=== PATIENT | female | born 1995 | race Hispanic/Latino ===

== ENCOUNTER 2018-01-29 16:50 | Emergency (ER) | payer OTHER ==
[2018-01-29] MEDS ORDERED: ONDANSETRON 4 MG (ODT) TAB ONE (17:21)
[2018-01-29 17:31] LABS: Urine Bacteria 20-50 /HPF (<20); Urine RBC <5 /HPF (NONE SEEN)
[2018-01-29 17:32] LABS: Urine Culture Reflex Order REFLEXED; Urine Mucus 3+ /HPF (NONE SEEN)
[2018-01-29 17:32] LABS: Urine Blood NEGATIVE (NEG); Urine Glucose NEGATIVE (NEG); Urine Protein 2+ (NEG); Urine Specific Gravity >1.030 (1.005-1.030)
[2018-01-29 18:04] LABS: Absolute Lymphocytes (CBC) 1.1 K/uL (0.7-4.9); Absolute Monocytes 0.6 K/uL (0.1-1.3); Absolute Neutrophil 9.5 K/uL (1.8-8.0); Eosinophils % 0.1 % (0-4.4); Hematocrit 42.5 % (36.0-45.0); Lymphocytes % 9.7 % (15.3-44.8); MCH 29.5 pg (27.0-35.0); MCV 89.4 fL (80-100); MPV 7.2 fL (7.6-11.3); Monocytes % 5.2 % (3.3-12.3); RBC Red Blood Cell Count 4.76 M/uL (3.86-4.86)
[2018-01-29] MEDS ORDERED: NA CHLORIDE 0.9% 1,000 ML ONE (18:05)
[2018-01-29 18:53] LABS: ALT/SGPT 43 U/L (12-78); AST/SGOT 31 U/L (15-37); Alkaline Phosphatase 118 U/L (45-117); Amylase Level 79 U/L (25-115); BUN Blood Urea Nitrogen 15 mg/dL (7-18); Bicarbonate 23 mmol/L (21-32); Bilirubin Direct 0.2 mg/dL (0-0.2); Bilirubin Total 0.5 mg/dL (0.2-1.0); Glucose Level 89 mg/dL (74-106); HCG, Quantitative 16297 mIU/mL (1-3); Lipase 76 U/L (73-393); Potassium 3.9 mmol/L (3.5-5.1); Protein, Total 8.9 g/dL (6.4-8.2); Sodium Level 137 mmol/L (136-145)
--- NOTE | 2018-01-29 20:05 | ER ---
Nurse's Notes [facility] Name: Bonnie Bazan Age: 22 yrs Sex: Female : 1995 Arrival Date: 01/29/2018 Time: 16:53 Bed 17 Private MD: Jered Del Rio E Diagnosis: Nausea and vomiting; related conditions, unspecified, first trimester Presentation: 01/29 16:57 Presenting complaint: Patient states: found out she was on Saturday and has been sv vomiting since then. Unable to keep fluids or crackers down. Transition of care: patient was not received from another setting of care. Onset of symptoms was January 27, 2018. Care prior to arrival: None. 16:57 Method Of Arrival: Ambulatory sv 16:57 Acuity: JESSENIA 3 sv 18:26 Risk Assessment: Do you want to hurt yourself or someone else? Patient reports no aj1 desire to harm self or others. Initial Sepsis Screen: Does the patient meet any 2 criteria? No. Patient's initial sepsis screen is negative. Does the patient have a suspected source of infection? No. Patient's initial sepsis screen is negative. 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 - Social history:: Smoking status: Patient/guardian denies using tobacco. - Ebola Screening: : No symptoms or risks identified at this time. Screenin:25 Abuse screen: Denies threats or abuse. Denies injuries from another. Nutritional aj1 screening: No deficits noted. Tuberculosis screening: No symptoms or risk factors identified. 18:26 Fall Risk None identified. aj1 Assessment: 17:25 General: Appears in no apparent distress. uncomfortable, Behavior is calm, cooperative, aj1 appropriate for age. Pain: Denies pain. Neuro: Level of Consciousness is awake, alert, obeys commands, Oriented to person, place, time, situation, Speech is normal, Facial symmetry appears normal. Cardiovascular: Patient's skin is warm and dry. Respiratory: Airway is patent Respiratory effort is even, unlabored, Respiratory pattern is regular, symmetrical. GI: Abdomen is non-distended, Bowel sounds present X 4 quads. Abd is soft and non tender X 4 quads. Reports intolerance of fluids, intolerance of food, nausea, vomiting, Patient currently denies abdominal pain, constipation, diarrhea. : No signs and/or symptoms were reported regarding the genitourinary system. EENT: No signs and/or symptoms were reported regarding the EENT system. Derm: No signs and/or symptoms reported regarding the dermatologic system. Skin is pink, warm \T\ dry. normal. Musculoskeletal: No signs and/or symptoms reported regarding the musculoskeletal system. Circulation, motion, and sensation intact. 18:27 Reassessment: Patient appears in no apparent distress at this time. No changes from aj1 previously documented assessment. Patient and/or family updated on plan of care and expected duration. Pain level reassessed. Patient is alert, oriented x 3, equal unlabored respirations, skin warm/dry/pink. 19:55 Reassessment: Patient appears in no apparent distress at this time. Patient and/or ak1 family updated on plan of care and expected duration. Pain level reassessed. Patient is alert, oriented x 3, equal unlabored respirations, skin warm/dry/pink. Patient states feeling better. Patient states symptoms have improved. pt keeping sprite and water down and asked for crackers. . Vital Signs: 16:58 BP 110 / 60; Pulse 80; Resp 18; Temp 97.4; Pulse Ox 97% ; Weight 95.71 kg; Height 5 ft. sv 4 in. (162.56 cm); Pain 2/10; 17:26 BP 107 / 68 Supine; Pulse 74; Resp 18; Pulse Ox 100% on R/A; aj1 17:26 BP 104 / 64 Sitting; Pulse 75; Resp 18; Pulse Ox 100% ; aj1 17:26 BP 115 / 98 Standing; Pulse 91; Resp 20; Pulse Ox 100% on R/A; aj1 18:27 BP 112 / 63; Pulse 79; Resp 18; Pulse Ox 99% ; aj1 19:55 BP 121 / 61; Pulse 75; Resp 16; Temp 98.; Pulse Ox 100% on R/A; Pain 0/10; ak1 16:58 Body Mass Index 36.22 (95.71 kg, 162.56 cm) sv ED Course: 16:53 Patient arrived in ED. sb2 16:53 Jered Del Rio MD is Private Physician. sb2 16:55 Luciano Mckeon PA is PHCP. [facility] 16:55 David Marquez MD is Attending Physician. [facility] 16:58 Triage completed. sv 16:58 Arm band placed on right wrist. sv 17:00 PHCP role handed off by Luciano Mckeon PA cp 17:00 Gigi Velez PA is PHCP. cp 17:00 Mireya Larson RN is Primary Nurse. aj1 17:25 Patient has correct armband on for positive identification. Bed in low position. Call aj1 light in reach. Side rails up X 1. 17:25 No provider procedures requiring assistance completed. Initial lab(s) drawn, by sd, ajMoises sent to lab. Inserted saline lock: 20 gauge in right antecubital area, using aseptic technique. Blood collected. 19:01 Patient taken to ultrasound. via wheelchair. lc3 19:29 Ultrasound completed. Patient tolerated well. Patient moved back from ultrasound. lc3 19:29 US Transvaginal Ob In Process Unspecified. EDMS 20:15 IV discontinued, intact, bleeding controlled, No redness/swelling at site. Pressure ak1 dressing applied. Administered Medications: 17:39 Drug: Zofran 4 mg Route: PO; aj1 20:16 Follow up: Response: No adverse reaction ak1 18:07 Drug: NS 0.9% 1000 ml Route: IV; Rate: 1 bolus; Site: right antecubital; aj1 20:16 Follow up: IV Status: Completed infusion ak1 Outcome: 20:05 Discharge ordered by . cp 20:13 Discharged to home ambulatory, with family. ak1 20:13 Condition: improved 20:13 Discharge instructions given to patient, Instructed on discharge instructions, follow up and referral plans. medication usage, Demonstrated understanding of instructions, follow-up care, medications. 20:20 Patient left the ED. ak1 Signatures: Dispatcher [employer] EDMS Mireya Larson RN RN aj1 Brittny Rich RN RN Luciano Mckeon PA PA jmm Krenek, Amber, RN RN ak1 Gigi Velez PA PA cp Cunningham, Laulita lc3 Billeau, Sheri sb2 Corrections: (The following items were deleted from the chart) 18:22 16:58 LMP 01/15/2018 sv aj1
--- NOTE | 2018-01-29 20:05 | EDPHYS ---
Physician Documentation [facility] Name: Bonnie Bazan Age: 22 yrs Sex: Female : 1995 Arrival Date: 01/29/2018 Time: 16:53 Bed 17 Private MD: Jered Del Rio E ED Physician David Marquez HPI: 01/29 17:09 This 22 yrs old Female presents to ER via Ambulatory with complaints of cp Vomiting. 17:09 The patient presents to the emergency department with nausea, that is moderate, cp vomiting, that is intermittent. Onset: The symptoms/episode began/occurred 2 day(s) ago. Possible causes: . 17:09 Associated signs and symptoms: Pertinent positives: abdominal pain, Pertinent cp negatives: constipation, diarrhea, fever, GI bleeding, vaginal discharge. 17:09 Severity of symptoms: in the emergency department the symptoms are unchanged. 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 - Social history:: Smoking status: Patient/guardian denies using tobacco. - Ebola Screening: : No symptoms or risks identified at this time. ROS: 17:09 Eyes: Negative for injury, pain, redness, and discharge. cp 17:09 Constitutional: Negative for body aches, chills, fever. 17:09 ENT: Negative for drainage from ear(s), ear pain, sore throat, difficulty swallowing, difficulty handling secretions. 17:09 Cardiovascular: Negative for chest pain, palpitations. 17:09 Respiratory: Negative for cough, shortness of breath, wheezing. 17:09 Abdomen/GI: Positive for abdominal pain, nausea and vomiting, Negative for diarrhea, constipation, black/tarry stool, rectal bleeding. 17:09 Back: Negative for pain at rest, pain with movement, radiated pain. 17:09 : Negative for urinary symptoms, vaginal bleeding, vaginal discharge. 17:09 Skin: Negative for cellulitis, rash. 17:09 All other systems are negative. Exam: 17:15 Head/Face: Normocephalic, atraumatic. cp 17:15 Constitutional: The patient appears in no acute distress, alert, awake, non-toxic, well developed, well nourished. 17:15 Eyes: Periorbital structures: appear normal, Conjunctiva: normal, no exudate, no injection, Sclera: no appreciated abnormality, Lids and lashes: appear normal, bilaterally. 17:15 ENT: External ear(s): are unremarkable, Nose: is normal, Mouth: Lips: moist, Oral mucosa: pink and intact, moist, Posterior pharynx: is normal, airway is patent. 17:15 Neck: ROM/movement: is normal, is supple, without pain, no range of motions limitations, no nuchal rigidity. 17:15 Chest/axilla: Inspection: normal, Palpation: is normal, no crepitus, no tenderness. 17:15 Cardiovascular: Rate: normal, Rhythm: regular. 17:15 Respiratory: the patient does not display signs of respiratory distress, Respirations: normal, no use of accessory muscles, no retractions, no splinting, no tachypnea, Breath sounds: are clear throughout, no decreased breath sounds, no stridor, no wheezing. 17:15 Abdomen/GI: Inspection: abdomen appears normal, Bowel sounds: active, all quadrants, Palpation: soft, in all quadrants, mild abdominal tenderness, in the suprapubic area, rebound tenderness, is not appreciated, voluntary guarding, is not appreciated, involuntary guarding, is not appreciated. 17:15 Back: pain, is absent, ROM is normal. 17:15 Skin: cellulitis, is not appreciated, no rash present. Vital Signs: 16:58 BP 110 / 60; Pulse 80; Resp 18; Temp 97.4; Pulse Ox 97% ; Weight 95.71 kg; Height 5 ft. sv 4 in. (162.56 cm); Pain 2/10; 17:26 BP 107 / 68 Supine; Pulse 74; Resp 18; Pulse Ox 100% on R/A; aj1 17:26 BP 104 / 64 Sitting; Pulse 75; Resp 18; Pulse Ox 100% ; aj1 17:26 BP 115 / 98 Standing; Pulse 91; Resp 20; Pulse Ox 100% on R/A; aj1 18:27 BP 112 / 63; Pulse 79; Resp 18; Pulse Ox 99% ; aj1 19:55 BP 121 / 61; Pulse 75; Resp 16; Temp 98.; Pulse Ox 100% on R/A; Pain 0/10; ak1 16:58 Body Mass Index 36.22 (95.71 kg, 162.56 cm) sv MDM: 17:00 Patient medically screened. cp 18:00 Differential diagnosis: gastritis, cholecystitis, pancreatitis, viral gastroenteritis, cp gastroenteritis, threatened miscarriage. 20:00 Data reviewed: vital signs, nurses notes, lab test result(s), radiologic studies, cp ultrasound, and as a result, I will discharge patient. 20:00 Counseling: I had a detailed discussion with the patient and/or guardian regarding: the cp historical points, exam findings, and any diagnostic results supporting the discharge/admit diagnosis, lab results, radiology results, the need for outpatient follow up, an OB/Gyne specialist, to return to the emergency department if symptoms worsen or persist or if there are any questions or concerns that arise at home. Response to treatment: the patient's symptoms have markedly improved after treatment, VSS. Symptoms markedly improved. No vomiting observed in ED. Will discharge to home for continued monitoring. 01/29 17:01 Order name: Urine Microscopic Only; Complete Time: 17:40 01/29 19:39 Interpretation: Normal except: UBACT 20-50; SQEPI 5-10; MUCUS 3+. 01/29 17:16 Order name: Urine Dipstick--Ancillary (enter results); Complete Time: 17:40 em 01/29 19:39 Interpretation: Normal except: UKET 4+; UPROT 2+. 01/29 17:16 Order name: Urine --Ancillary (enter results); Complete Time: 17:40 [facility] 01/29 17:40 Interpretation: Reviewed. 01/29 17:32 Order name: Urine Culture EDPR 01/29 17:43 Order name: Quantitative Hcg 01/29 17:43 Order name: Abo/rh Typing; Complete Time: 19:00 01/29 17:43 Order name: Basic Metabolic Panel 01/29 17:43 Order name: CBC with Diff; Complete Time: 19:00 01/29 19:00 Interpretation: Normal except: WBC 11.4; MCV 89.4; PLT 426; MPV 7.2; ANDERSON% 84.0; LYM% cp 9.7; NEUT A 9.5. 01/29 17:43 Order name: Lipase cp 01/29 17:43 Order name: Amylase, Serum cp 01/29 17:43 Order name: LFT's cp 01/29 17:43 Order name: HCG, Quantitative; Complete Time: 19:00 EDMS 01/29 19:39 Interpretation: HCGQ 03756; Reviewed. cp 07 17:43 Order name: Basic Metabolic Panel; Complete Time: 19:00 EDMS 01/29 19:40 Interpretation: Reviewed. cp 01/29 17:43 Order name: Lipase; Complete Time: 19:00 EDMS 01/29 17:01 Order name: Urine Dipstick-Ancillary (obtain specimen); Complete Time: 17:12 cp 01/29 17:01 Order name: Urine Test (obtain specimen); Complete Time: 17:12 cp 01/29 17:19 Order name: Orthostatics; Complete Time: 17:28 cp 01/29 17:41 Order name: PO challenge; Complete Time: 18:08 cp 01/29 17:43 Order name: IV Saline Lock; Complete Time: 17:55 cp 01/29 17:43 Order name: Labs collected and sent; Complete Time: 17:55 cp 01/29 17:43 Order name: Amylase Level; Complete Time: 19:00 EDMS 01/29 17:43 Order name: Liver (Hepatic) Function; Complete Time: 19:00 EDMS 01/29 19:40 Interpretation: Normal except: ALK 118; TP 8.9; GLOB 4.9; A/G 0.8. cp 01/29 19:01 Order name: US Transvaginal Ob; Complete Time: 20:19 cp Administered Medications: 17:39 Drug: Zofran 4 mg Route: PO; aj1 20:16 Follow up: Response: No adverse reaction ak1 18:07 Drug: NS 0.9% 1000 ml Route: IV; Rate: 1 bolus; Site: right antecubital; aj1 20:16 Follow up: IV Status: Completed infusion ak1 Disposition: 01/30 07:25 Co-signature as Attending Physician, David Marquez MD. rn Disposition: 01/29/18 20:05 Discharged to Home. Impression: Nausea and vomiting, related conditions, unspecified, first trimester. - Condition is Stable. - Discharge Instructions: Abdominal Pain During , Medicines During , Nausea and Vomiting, First Trimester of . - Prescriptions for Vitamin 27- 0.8 mg Oral Tablet - take 1 tablet by ORAL route once daily; 60 tablet. Phenergan 25 mg Rectal Suppository - insert 1 suppository by RECTAL route every 6 hours As needed; 12 suppository. promethazine 25 mg Oral Tablet - take 1 tablet by ORAL route every 6 hours As needed; 20 tablet. - Medication Reconciliation Form, Thank You Letter, Antibiotic Education, Prescription Opioid Use form. - Follow up: Private Physician; When: 1 week; Reason: Recheck today's complaints. - Problem is new. - Symptoms have improved. Signatures: Dispatcher [employer] EDMS Mireya Larson RN RN aj1 Brittny Rich RN RN David Ortiz MD MD rn Krenek, Amber, RN RN ak1 Gigi Velez PA PA cp Corrections: (The following items were deleted from the chart) 01/29 20:20 20:05 01/29/2018 20:05 Discharged to Home. Impression: Nausea and vomiting; ak1 related conditions, unspecified, first trimester. Condition is Stable. Forms are Medication Reconciliation Form, Thank You Letter, Antibiotic Education, Prescription Opioid Use. Follow up: Private Physician; When: 1 week; Reason: Recheck today's complaints. Problem is new. Symptoms have improved. cp
--- NOTE | 2018-01-29 20:08 | RAD REPORT ---
EXAM DESCRIPTION: US - Transvaginal OB - 01/29/2018 7:29 pm CLINICAL HISTORY: with abdominal pain COMPARISON: None. FINDINGS: The uterus is retroverted and measures 8 x 4 x 5 centimeters. A gestational sac is presen t within the endometrium. Within this is a yolk sac and pole with a crown-rump length 5 millime ters. Cardiac activity was not seen. 1 centimeter subchorionic bleed is noted. The ovaries are normal in size and echotexture. No significant free fluid is seen. IMPRESSION: Intrauterine with an estimated gestational age 6 weeks 2 days ANGELIA 09/22/2018. This may represent an early viable in which the heart beat is not yet detected. It is recom mended that the patient have serial beta HCG levels and a followup endovaginal sonogram in 1 week
== END 2018-01-29 20:20 | disposition home or self-care (01) ==
LOC: ER 16:50
DX: O21.0 Mild hyperemesis gravidarum (principal)
CPT/HCPCS: 36415; 76817; 80048; 80076; 81003; 81015; 81025; 82150; 83690; 84702; 85025; 86900; 86901; 87086; 87088; 96360; 96361; 99284; J7030

== ENCOUNTER 2018-02-04 13:56 | Emergency (ER) | payer OTHER, SELFPAY ==
[2018-02-04 14:52] LABS: Urine Blood NEGATIVE (NEG); Urine Glucose NEGATIVE (NEG); Urine Protein 2+ (NEG)
[2018-02-04 14:55] LABS: Urine Bacteria >50 /HPF (<20); Urine Culture Reflex Order REFLEXED; Urine Mucus 3+ /HPF (NONE SEEN); Urine RBC <5 /HPF (NONE SEEN)
[2018-02-04] MEDS ORDERED: ONDANSETRON 4 MG/2 ML VIAL ONE (14:56)
[2018-02-04] MEDS ORDERED: NA CHLORIDE 0.9% 1,000 ML ONE ×2 (14:57→19:59)
[2018-02-04] MEDS ORDERED: D5LR 1,000 ML IV ONE (14:57)
[2018-02-04] MEDS ORDERED: NITROFURAN MACRO 100 MG CAP PO ONE (16:09)
--- NOTE | 2018-02-04 18:02 | ER ---
Nurse's Notes [facility] Name: Bonnie Bazan Age: 22 yrs Sex: Female : 1995 Arrival Date: 02/04/2018 Time: 13:59 Bed 7 Private MD: Jered Del Rio E Diagnosis: Urinary tract infection, site not specified;Vomiting Presentation: 02/04 14:16 Presenting complaint: Patient states: Vomiting x 1 week. Seen in this ER last week aj given RX for Phenergan tab and suppository, reports that nausea continues. Did not follow up with PCP. Transition of care: patient was not received from another setting of care. Onset of symptoms was January 28, 2018. Risk Assessment: Do you want to hurt yourself or someone else? Patient reports no desire to harm self or others. Initial Sepsis Screen: Does the patient meet any 2 criteria? No. Patient's initial sepsis screen is negative. Does the patient have a suspected source of infection? No. Patient's initial sepsis screen is negative. Care prior to arrival: None. 14:16 Method Of Arrival: Ambulatory aj 14:16 Acuity: JESSENIA 3 aj Triage Assessment: 14:16 General: Appears in no apparent distress. comfortable, Behavior is calm, cooperative, aj appropriate for age. Pain: Denies pain. Neuro: Level of Consciousness is awake, alert, obeys commands, Oriented to person, place, time, situation, Appropriate for age. Respiratory: Airway is patent Respiratory effort is even, unlabored, Respiratory pattern is regular, symmetrical. GI: Abdomen is non-distended, obese, Reports nausea, vomiting. Derm: Skin is intact, is healthy with good turgor, Skin is pink, warm \T\ dry. normal. 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 - Social history:: Smoking status: . - Ebola Screening: : Patient denies travel to an Ebola-affected area in the 21 days before illness onset. - Family history:: not pertinent. - Hospitalizations: : No recent hospitalization is reported. Screenin:14 Abuse screen: Denies threats or abuse. Nutritional screening: No deficits noted. tw2 Tuberculosis screening: No symptoms or risk factors identified. Fall Risk None identified. Assessment: 14:20 General: Appears in no apparent distress. Behavior is calm, cooperative, appropriate tw2 for age. Neuro: Level of Consciousness is awake, alert, obeys commands, Oriented to person, place, time, situation. Cardiovascular: Heart tones S1 S2 Patient's skin is warm and dry. Respiratory: Airway is patent Respiratory effort is even, unlabored, Respiratory pattern is regular, symmetrical. GI: pt retching at this time, no fluid noted in emesis bag. : No signs and/or symptoms were reported regarding the genitourinary system. Urine is dark melinda urine noted. EENT: No signs and/or symptoms were reported regarding the EENT system. Derm: Skin is intact, Skin temperature is warm. Musculoskeletal: Range of motion: intact in all extremities. 15:18 Reassessment: Patient appears in no apparent distress at this time. Patient and/or tw2 family updated on plan of care and expected duration. Pain level reassessed. Patient is alert, oriented x 3, equal unlabored respirations, skin warm/dry/pink. Patient states symptoms have improved. 16:12 Reassessment: Patient and/or family updated on plan of care and expected duration. Pain tw2 level reassessed. Patient is alert, oriented x 3, equal unlabored respirations, skin warm/dry/pink. pt given crackers, berny jg, and sprite at this time, if tolerated will give PO macrobid Patient states feeling better. Patient states symptoms have improved. 16:59 Reassessment: Patient appears in no apparent distress at this time. Patient and/or tw2 family updated on plan of care and expected duration. Pain level reassessed. Patient is alert, oriented x 3, equal unlabored respirations, skin warm/dry/pink. 18:15 Reassessment: Patient appears in no apparent distress at this time. Patient and/or tw2 family updated on plan of care and expected duration. Pain level reassessed. Patient is alert, oriented x 3, equal unlabored respirations, skin warm/dry/pink. Patient states symptoms have improved. 19:04 Reassessment: Patient appears in no apparent distress at this time. Patient and/or tw2 family updated on plan of care and expected duration. Pain level reassessed. Patient is alert, oriented x 3, equal unlabored respirations, skin warm/dry/pink. Patient states feeling better. Patient states symptoms have improved. Vital Signs: 14:16 BP 125 / 75; Pulse 99; Resp 16; Temp 97.7; Pulse Ox 99% on R/A; Weight 95.71 kg; Height aj 5 ft. 4 in. (162.56 cm); 15:18 BP 130 / 88; Pulse 81; Resp 17; Pulse Ox 98% on R/A; tw2 16:13 BP 132 / 63; Pulse 89; Resp 17; Pulse Ox 100% on R/A; tw2 16:59 BP 121 / 77; Pulse 86; Resp 17; Pulse Ox 100% on R/A; tw2 18:14 BP 125 / 83; Pulse 82; Resp 17; Pulse Ox 99% on R/A; tw2 19:03 BP 116 / 60; Pulse 84; Resp 17; Pulse Ox 99% on R/A; tw2 14:16 Body Mass Index 36.22 (95.71 kg, 162.56 cm) ED Course: 13:59 Patient arrived in ED. mr 14:00 Jered Del Rio MD is Private Physician. mr 14:10 Gena Rhodes RN is Primary Nurse. tw2 14:15 Arm band placed on. tw2 14:16 Bed in low position. Call light in reach. Adult w/ patient. Pulse ox on. NIBP on. tw2 emesis basin provided. 14:18 Triage completed. aj 14:22 David Marquez MD is Attending Physician. rn 14:43 Urine Microscopic Only Sent. tw2 18:01 Jered Del Rio MD is Referral Physician. rn 18:13 Awaiting: completion of IV fluids at this time prior to discharge, pt has 24 g fluids tw2 placed on pump at this time. 19:04 No provider procedures requiring assistance completed. IV discontinued, intact, tw2 bleeding controlled, No redness/swelling at site. Pressure dressing applied. Administered Medications: 14:57 Drug: Zofran 4 mg Route: IVP; Site: right antecubital; tw2 15:30 Follow up: Response: No adverse reaction; Nausea is decreased tw2 15:03 Drug: NS 0.9% 1000 ml Route: IV; Rate: 1000 ml; Site: right antecubital; tw2 16:01 Follow up: IV Status: Completed infusion; IV Intake: 1000ml tw2 16:01 Drug: D5-LR 1000 ml Route: IV; Rate: 1 bolus; Site: right antecubital; tw2 19:00 Follow up: IV Status: Completed infusion; IV Intake: 1000ml tw2 16:25 Drug: Macrobid 100 mg {Note: with crackers at this time.} Route: PO; tw2 17:25 Follow up: Response: No adverse reaction tw2 Intake: 16:01 IV: 1000ml; Total: 1000ml. tw2 19:00 IV: 1000ml; Total: 2000ml. tw2 Outcome: 18:01 Discharge ordered by . rn 19:05 Discharged to home ambulatory, with significant other. tw2 19:05 Condition: stable 19:05 Discharge instructions given to patient, significant other, Instructed on discharge instructions, follow up and referral plans. medication usage, Demonstrated understanding of instructions, follow-up care, medications, Prescriptions given X 2. 19:05 Patient left the ED. tw2 Signatures: Kalyn Cruz RN RN aj Rivera, Maria mr Nieto, Roman, MD MD rn Wise, Tara, RN RN tw2
--- NOTE | 2018-02-04 18:03 | EDPHYS ---
Physician Documentation [facility] Name: Bonnie Bazan Age: 22 yrs Sex: Female : 1995 Arrival Date: 02/04/2018 Time: 13:59 Bed 7 Private MD: Jered Del Rio E ED Physician David Marquez HPI: 02/04 15:07 This 22 yrs old Female presents to ER via Ambulatory with complaints of rn Vomiting, 7 wks . 15:07 The patient presents to the emergency department with nausea, vomiting. Onset: The rn symptoms/episode began/occurred at an unknown time. Possible causes: . The symptoms are aggravated by nothing. The symptoms are alleviated by nothing. Severity of symptoms: At their worst the symptoms were moderate in the emergency department the symptoms are unchanged. The patient has experienced similar episodes in the past. The patient has been recently seen by a physician:. Seen here recently, had u/s that shows evidence of IUP, reports vomiting moderate amount, not able to keep much down, given phenergan, vomiting frequently, no fever/abd pain, no urinary symptoms. No vaginal bleeding/discharge. . 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 - Social history:: Smoking status: . - Ebola Screening: : Patient denies travel to an Ebola-affected area in the 21 days before illness onset. - Family history:: not pertinent. - Hospitalizations: : No recent hospitalization is reported. ROS: 15:09 Constitutional: Negative for fever, chills, and weight loss, Eyes: Negative for injury, rn pain, redness, and discharge, Cardiovascular: Negative for chest pain, palpitations, and edema, Respiratory: Negative for shortness of breath, cough, wheezing, and pleuritic chest pain, Abdomen/GI: + nausea/vomiting, neg for abd pain/diarrhea MS/Extremity: Negative for injury and deformity, Skin: Negative for injury, rash, and discoloration, Neuro: Negative for headache, numbness, tingling, and seizure. Exam: 15:09 Constitutional: This is a well developed, well nourished patient who is awake, alert, rn and in no acute distress. Head/Face: Normocephalic, atraumatic. ENT: dry MM Cardiovascular: Regular rate and rhythm with a normal S1 and S2. No gallops, murmurs, or rubs. Normal PMI, no JVD. No pulse deficits. Respiratory: Lungs have equal breath sounds bilaterally, clear to auscultation and percussion. No rales, rhonchi or wheezes noted. No increased work of breathing, no retractions or nasal flaring. Abdomen/GI: Soft, non-tender, with normal bowel sounds. No distension or tympany. No guarding or rebound. No evidence of tenderness throughout. MS/ Extremity: Pulses equal, no cyanosis. Neurovascular intact. Full, normal range of motion. Equal circumference. Neuro: Awake and alert, GCS 15, oriented to person, place, time, and situation. Cranial nerves II-XII grossly intact. Motor strength 5/5 in all extremities. Sensory grossly intact. Cerebellar exam normal. Normal gait. Vital Signs: 14:16 BP 125 / 75; Pulse 99; Resp 16; Temp 97.7; Pulse Ox 99% on R/A; Weight 95.71 kg; Height aj 5 ft. 4 in. (162.56 cm); 15:18 BP 130 / 88; Pulse 81; Resp 17; Pulse Ox 98% on R/A; tw2 16:13 BP 132 / 63; Pulse 89; Resp 17; Pulse Ox 100% on R/A; tw2 16:59 BP 121 / 77; Pulse 86; Resp 17; Pulse Ox 100% on R/A; tw2 18:14 BP 125 / 83; Pulse 82; Resp 17; Pulse Ox 99% on R/A; tw2 19:03 BP 116 / 60; Pulse 84; Resp 17; Pulse Ox 99% on R/A; tw2 14:16 Body Mass Index 36.22 (95.71 kg, 162.56 cm) aj MDM: 14:22 Patient medically screened. rn 15:51 Response to treatment: the patient's symptoms have markedly improved after treatment. rn 17:49 Differential diagnosis: , UTI. 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 Counseling: I had a detailed discussion with the patient and/or guardian regarding: the historical points, exam findings, and any diagnostic results supporting the discharge/admit diagnosis, lab results, the need for outpatient follow up, to return to the emergency department if symptoms worsen or persist or if there are any questions or concerns that arise at home. Medical screen evaluation completed. [facility] emergency medical condition absent. Special discussion: I discussed with the patient/guardian in detail that at this point there is no indication for admission to the hospital. It is understood, however, that if the symptoms persist or worsen the patient needs to return immediately for re-evaluation. 02/04 14:23 Order name: Urine Microscopic Only; Complete Time: 15:48 rn 02/04 14:37 Order name: Urine Dipstick--Ancillary (enter results); Complete Time: 15:48 eb 02/04 14:37 Order name: Urine --Ancillary (enter results); Complete Time: 15:48 eb 02/04 14:57 Order name: Urine Culture EDMS 02/04 14:23 Order name: Urine Dipstick-Ancillary (obtain specimen); Complete Time: 14:42 rn 02/04 14:47 Order name: IV Start; Complete Time: 14:52 rn Administered Medications: 14:57 Drug: Zofran 4 mg Route: IVP; Site: right antecubital; tw2 15:30 Follow up: Response: No adverse reaction; Nausea is decreased tw2 15:03 Drug: NS 0.9% 1000 ml Route: IV; Rate: 1000 ml; Site: right antecubital; tw2 16:01 Follow up: IV Status: Completed infusion; IV Intake: 1000ml tw2 16:01 Drug: D5-LR 1000 ml Route: IV; Rate: 1 bolus; Site: right antecubital; tw2 19:00 Follow up: IV Status: Completed infusion; IV Intake: 1000ml tw2 16:25 Drug: Macrobid 100 mg {Note: with crackers at this time.} Route: PO; tw2 17:25 Follow up: Response: No adverse reaction tw2 Disposition: 02/04/18 18:01 Discharged to Home. Impression: Urinary tract infection, site not specified, Vomiting. - Condition is Stable. - Discharge Instructions: Nausea and Vomiting, Urinary Tract Infection. - Prescriptions for Zofran ODT 4 mg Oral tablet,disintegrating - place 1 tablet by TRANSLINGUAL route every 8-10 hours As needed; 10 tablet. Macrobid 100 mg Oral Capsule - take 1 capsule by ORAL route every 12 hours for 7 days; 14 capsule. - Medication Reconciliation Form, Thank You Letter, Antibiotic Education, Prescription Opioid Use form. - Follow up: Jered Del Rio MD; When: As needed; Reason: Recheck today's complaints, Re-evaluation by your physician. - Problem is new. - Symptoms have improved. Signatures: Dispatcher [employer] EDSD Davdi Marquez MD MD rn Wise, Tara, RN RN tw2 Corrections: (The following items were deleted from the chart) 19:05 18:01 02/04/2018 18:01 Discharged to Home. Impression: Urinary tract infection, site tw2 not specified; Vomiting. Condition is Stable. Forms are Medication Reconciliation Form, Thank You Letter, Antibiotic Education, Prescription Opioid Use. Follow up: Jered Del Rio; When: As needed; Reason: Recheck today's complaints, Re-evaluation by your physician. Problem is new. Symptoms have improved. rn
== END 2018-02-04 19:05 | disposition home or self-care (01) ==
LOC: ER 13:56
DX: O23.41 Unspecified infection of urinary tract in pregnancy, first trimester (principal); Z3A.01 Less than 8 weeks gestation of pregnancy
CPT/HCPCS: 81003; 81015; 81025; 87086; 87088; 96361; 96374; 99284; J2405; J7030

== ENCOUNTER 2018-11-04 17:45 | Emergency (ER) | payer OTHER ==
--- OUTSIDE RECORDS SUMMARY | 2018-11-04 17:47 | XMS REPORT ---
:1995 [facility] Address [address] [place] [address] Dr. Hill [address] [place] [id number] Care Team Providers Name Role Phone Unavailable Unavailable Unavailable Problems This patient has no known problems. Allergies, Adverse Reactions, Alerts This patient has no known allergies or adverse reactions. Medications This patient has no known medications.
[2018-11-04 18:46] LABS: Urine Blood NEGATIVE (NEG); Urine Glucose NEGATIVE (NEG); Urine Protein 2+ (NEG)
[2018-11-04 18:46] LABS: Absolute Lymphocytes (CBC) 1.9 K/uL (0.7-4.9); Absolute Monocytes 0.6 K/uL (0.1-1.3); Absolute Neutrophil 8.5 K/uL (1.8-8.0); Basophils % 0.8 % (0-1.3); Eosinophils % 0.4 % (0-4.4); Hematocrit 37.3 % (36.0-45.0); Lymphocytes % 17.3 % (15.3-44.8); MPV 7.2 fL (7.6-11.3); Monocytes % 5.1 % (3.3-12.3); RBC Red Blood Cell Count 4.36 M/uL (3.86-4.86)
[2018-11-04 19:16] LABS: ALT/SGPT 22 U/L (12-78); AST/SGOT 22 U/L (15-37); Albumin 3.8 g/dL (3.4-5.0); Alkaline Phosphatase 155 U/L (45-117); BUN Blood Urea Nitrogen 13 mg/dL (7-18); Bicarbonate 26 mmol/L (21-32); Bilirubin Direct < 0.1 mg/dL (0-0.2); Bilirubin Total 0.2 mg/dL (0.2-1.0); Glucose Level 83 mg/dL (74-106); Lipase 132 U/L (73-393); Protein, Total 8.4 g/dL (6.4-8.2); Sodium Level 141 mmol/L (136-145)
[2018-11-04] MEDS ORDERED: KETOROLAC 30 MG/ML INJ ONE (19:54)
[2018-11-04] MEDS ORDERED: ONDANSETRON 4 MG/2 ML VIAL ONE (19:55)
[2018-11-04] MEDS ORDERED: NA CHLORIDE 0.9% 1,000 ML ONE (19:55)
--- NOTE | 2018-11-04 19:55 | RAD REPORT ---
EXAM DESCRIPTION: US - Abdomen Exam Limited - 11/04/2018 7:29 pm CLINICAL HISTORY: Abdominal pain COMPARISON: None. FINDINGS: Multiple small mobile gallstones are identifiable. There is no wall thickening or perichol ecystic fluid. No common duct stone or biliary tree dilatation identified. IMPRESSION: Multi stone cholelithiasis. No biliary tree abnormality.
--- NOTE | 2018-11-04 20:03 | ER ---
Nurse's Notes [facility] Name: Bonnie Bazan Age: 23 yrs Sex: Female : 1995 Arrival Date: 11/04/2018 Time: 17:47 Bed 25 Private MD: Diagnosis: Cholelithiasis Presentation: 11/04 18:12 Presenting complaint: Patient states: upper abd pain radiating to upper back since this iw morning, described as sharp, intermittent, also had vomiting this morning, denies urinary symptoms, denies diarrhea. Transition of care: patient was not received from another setting of care. Onset of symptoms was November 04, 2018. Risk Assessment: Do you want to hurt yourself or someone else? Patient reports no desire to harm self or others. Initial Sepsis Screen: Does the patient meet any 2 criteria? No. Patient's initial sepsis screen is negative. Does the patient have a suspected source of infection? No. Patient's initial sepsis screen is negative. Care prior to arrival: None. 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 - Social history:: Smoking status: Patient/guardian denies using tobacco. - Ebola Screening: : Patient negative for fever greater than or equal to 101.5 degrees Fahrenheit, and additional compatible Ebola Virus Disease symptoms Patient denies exposure to infectious person Patient denies travel to an Ebola-affected area in the 21 days before illness onset No symptoms or risks identified at this time. Screenin:31 Abuse screen: Denies threats or abuse. Denies injuries from another. Nutritional aj1 screening: No deficits noted. Tuberculosis screening: No symptoms or risk factors identified. 19:30 Fall Risk IV access (20 points). mg2 Assessment: 18:31 General: Appears in no apparent distress. uncomfortable, Behavior is calm, cooperative, aj1 appropriate for age. Pain: Complains of pain in epigastric area, right upper quadrant and left upper quadrant Pain radiates to back Pain currently is 9 out of 10 on a pain scale. Quality of pain is described as sharp, Is intermittent. Neuro: Level of Consciousness is awake, alert, obeys commands, Oriented to person, place, time, situation. Cardiovascular: Patient's skin is warm and dry. Respiratory: Airway is patent Respiratory effort is even, unlabored, Respiratory pattern is regular, symmetrical. GI: Abdomen is non-distended, Bowel sounds present X 4 quads. Abd is soft X 4 quads Reports nausea, vomiting, Patient currently denies diarrhea. : No signs and/or symptoms were reported regarding the genitourinary system. EENT: No signs and/or symptoms were reported regarding the EENT system. Derm: No signs and/or symptoms reported regarding the dermatologic system. Skin is pink, warm \T\ dry. normal. Musculoskeletal: Circulation, motion, and sensation intact. 20:18 Reassessment: patient for discharge after the iv fluid consumed. mg2 20:52 Reassessment: Patient states feeling better. Patient states symptoms have improved. mg2 Vital Signs: 18:14 BP 102 / 59; Pulse 92; Resp 16 S; Temp 98.3; Pulse Ox 100% on R/A; Weight 94.35 kg; iw Height 5 ft. 3 in. (160.02 cm); Pain 9/10; 19:54 BP 102 / 58; Pulse 77; Resp 18; Pulse Ox 100% on R/A; Pain 4/10; mg2 18:14 Body Mass Index 36.85 (94.35 kg, 160.02 cm) iw ED Course: 17:47 Patient arrived in ED. as 17:57 Haley Alvarez FNP-C is PHCP. kb 17:57 David Marquez MD is Attending Physician. kb 18:14 Triage completed. iw 18:14 Arm band placed on. iw 18:23 Mireya Larson, JOVITA is Primary Nurse. aj1 18:31 Patient has correct armband on for positive identification. aj1 18:31 No provider procedures requiring assistance completed. aj1 18:32 Inserted saline lock: 22 gauge in left antecubital area, using aseptic technique. tm3 18:32 Initial lab(s) drawn, by me, sent to lab. tm3 19:29 US Abdomen Limited In Process Unspecified. EDMS 20:52 IV discontinued, intact, bleeding controlled, No redness/swelling at site. Pressure mg2 dressing applied. Administered Medications: 19:51 Drug: NS 0.9% 1000 ml Route: IV; Rate: 1000 ml; Site: left antecubital; mg2 20:51 Follow up: Response: No adverse reaction; IV Status: Completed infusion mg2 19:52 Drug: TORadol 30 mg Route: IVP; Site: left antecubital; mg2 20:52 Follow up: Response: No adverse reaction; Marked relief of symptoms mg2 19:52 Drug: Zofran 4 mg Route: IVP; Site: left antecubital; mg2 20:51 Follow up: Response: No adverse reaction; Marked relief of symptoms mg2 Outcome: 20:03 Discharge ordered by . aby 20:52 Discharged to home ambulatory. mg2 20:52 Condition: stable 20:52 Discharge instructions given to patient, Instructed on discharge instructions, follow up and referral plans. medication usage, Demonstrated understanding of instructions, follow-up care, medications, Prescriptions given X 3. 20:54 Patient left the ED. mg2 Signatures: Dispatcher [employer] EDMS Haley Alvarez, TACTICAL DEBRIEFER OFFICER-C TACTICAL DEBRIEFER OFFICER-CkMireya Brown, RN RN aj1 Norberto Soni tm3 Meagan Mcfarland Irene, RN RN iw Asher Allen RN RN mg2
--- NOTE | 2018-11-04 20:04 | EDPHYS ---
Physician Documentation [facility] Name: Bonnie Bazan Age: 23 yrs Sex: Female : 1995 Arrival Date: 11/04/2018 Time: 17:47 Bed 25 Private MD: ED Physician David Marquez HPI: 11/04 20:02 This 23 yrs old Female presents to ER via Ambulatory with complaints of kb Abdominal Pain, Back Pain. 20:02 The patient presents with abdominal pain in the upper abdomen. Onset: The kb symptoms/episode began/occurred this morning. The symptoms radiate to back. Associated signs and symptoms: Pertinent positives: nausea and vomiting, Pertinent negatives: anorexia, blood in stools, chest pain, constipation, diarrhea, dysuria, fever, headache, hematuria, palpitations, shortness of breath, vaginal discharge, vomiting blood. The symptoms are described as intermittent. Modifying factors: The symptoms are alleviated by nothing, the symptoms are aggravated by nothing. Severity of pain: At its worst the pain was moderate in the emergency department the pain is unchanged. The patient has not experienced similar symptoms in the past. The patient has not recently seen a physician. 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 - Social history:: Smoking status: Patient/guardian denies using tobacco. - Ebola Screening: : Patient negative for fever greater than or equal to 101.5 degrees Fahrenheit, and additional compatible Ebola Virus Disease symptoms Patient denies exposure to infectious person Patient denies travel to an Ebola-affected area in the 21 days before illness onset No symptoms or risks identified at this time. ROS: 19:45 Constitutional: Negative for fever, chills, and weight loss, ENT: Negative for injury, kb pain, and discharge, Neck: Negative for injury, pain, and swelling, Cardiovascular: Negative for chest pain, palpitations, and edema, Respiratory: Negative for shortness of breath, cough, wheezing, and pleuritic chest pain, Back: Negative for injury and pain, : Negative for injury, bleeding, discharge, and swelling, MS/Extremity: Negative for injury and deformity, Skin: Negative for injury, rash, and discoloration, Neuro: Negative for headache, weakness, numbness, tingling, and seizure. 19:45 Abdomen/GI: Positive for abdominal pain, nausea and vomiting, Negative for diarrhea, constipation, abdominal cramps, abdominal distension, anorexia. Exam: 19:45 Constitutional: This is a well developed, well nourished patient who is awake, alert, kb and in no acute distress. Head/Face: Normocephalic, atraumatic. ENT: Nares patent. No nasal discharge, no septal abnormalities noted. Tympanic membranes are normal and external auditory canals are clear. Oropharynx with no redness, swelling, or masses, exudates, or evidence of obstruction, uvula midline. Mucous membranes moist. Neck: Trachea midline, no thyromegaly or masses palpated, and no cervical lymphadenopathy. Supple, full range of motion without nuchal rigidity, or vertebral point tenderness. No Meningismus. Chest/axilla: Normal chest wall appearance and motion. Nontender with no deformity. No lesions are appreciated. Cardiovascular: Regular rate and rhythm with a normal S1 and S2. No gallops, murmurs, or rubs. Normal PMI, no JVD. No pulse deficits. Respiratory: Lungs have equal breath sounds bilaterally, clear to auscultation and percussion. No rales, rhonchi or wheezes noted. No increased work of breathing, no retractions or nasal flaring. Back: No spinal tenderness. No costovertebral tenderness. Full range of motion. Skin: Warm, dry with normal turgor. Normal color with no rashes, no lesions, and no evidence of cellulitis. MS/ Extremity: Pulses equal, no cyanosis. Neurovascular intact. Full, normal range of motion. Neuro: Awake and alert, GCS 15, oriented to person, place, time, and situation. Cranial nerves II-XII grossly intact. Motor strength 5/5 in all extremities. Sensory grossly intact. Cerebellar exam normal. Normal gait. 19:45 Abdomen/GI: Inspection: abdomen appears normal, Bowel sounds: normal, in all quadrants, Palpation: soft, moderate abdominal tenderness, in the epigastric area and right upper quadrant. Vital Signs: 18:14 BP 102 / 59; Pulse 92; Resp 16 S; Temp 98.3; Pulse Ox 100% on R/A; Weight 94.35 kg; iw Height 5 ft. 3 in. (160.02 cm); Pain 9/10; 19:54 BP 102 / 58; Pulse 77; Resp 18; Pulse Ox 100% on R/A; Pain 4/10; mg2 18:14 Body Mass Index 36.85 (94.35 kg, 160.02 cm) iw MDM: 18:03 Patient medically screened. kb 20:01 Data reviewed: vital signs, nurses notes. Data interpreted: Pulse oximetry: on room air kb is 100 %. Interpretation: normal. Counseling: I had a detailed discussion with the patient and/or guardian regarding: the historical points, exam findings, and any diagnostic results supporting the discharge/admit diagnosis, lab results, radiology results, the need for outpatient follow up, a family practitioner, a general surgeon, to return to the emergency department if symptoms worsen or persist or if there are any questions or concerns that arise at home. 11/04 18:22 Order name: Basic Metabolic Panel; Complete Time: 19:16 kb 11/04 18:22 Order name: CBC with Diff; Complete Time: 18:55 kb 11/04 18:22 Order name: Hepatic Function; Complete Time: 19:16 kb 11/04 18:22 Order name: Lipase; Complete Time: 19:16 kb 11/04 18:41 Order name: Urine Dipstick--Ancillary (enter results) bd 11/04 18:41 Order name: Urine --Ancillary (enter results); Complete Time: 18:48 bd 11/04 18:22 Order name: IV Saline Lock; Complete Time: 18:43 kb 11/04 18:22 Order name: US Abdomen Limited; Complete Time: 20:04 kb 11/04 18:41 Order name: Urine Dipstick-Ancillary; Complete Time: 18:48 EDMS 11/04 18:22 Order name: Labs collected and sent; Complete Time: 18:43 kb Administered Medications: 19:51 Drug: NS 0.9% 1000 ml Route: IV; Rate: 1000 ml; Site: left antecubital; mg2 20:51 Follow up: Response: No adverse reaction; IV Status: Completed infusion mg2 19:52 Drug: TORadol 30 mg Route: IVP; Site: left antecubital; mg2 20:52 Follow up: Response: No adverse reaction; Marked relief of symptoms mg2 19:52 Drug: Zofran 4 mg Route: IVP; Site: left antecubital; mg2 20:51 Follow up: Response: No adverse reaction; Marked relief of symptoms mg2 Disposition: 11/04/18 20:03 Discharged to Home. Impression: Cholelithiasis. - Condition is Stable. - Discharge Instructions: Cholelithiasis, [id number]. - Prescriptions for Bentyl 20 mg Oral Tablet - take 1 tablet by ORAL route every 6 hours As needed; 20 tablet. Zofran 4 mg Oral Tablet - take 1 tablet by ORAL route every 6 hours As needed; 20 tablet. Diclofenac Sodium 75 mg Oral Tablet, Delayed Release (E.C.) - take 1 tablet by ORAL route 2 times per day As needed; 30 tablet. - Medication Reconciliation Form, Thank You Letter, Antibiotic Education, Prescription Opioid Use form. - Follow up: Emergency Department; When: As needed; Reason: Worsening of condition. Follow up: Private Physician; When: 2 - 3 days; Reason: Recheck today's complaints, Continuance of care, Re-evaluation by your physician. Signatures: Dispatcher [employer] [facility] Haley Alvarez, LIVE STUDY MANAGER-C LIVE STUDY MANAGER-Ckb Carlie Jamil RN RN iw Asher Allen RN RN mg2 Corrections: (The following items were deleted from the chart) 18:42 18:41 Urine Dipstick-Ancillary ordered. [facility] EDIL 18:42 18:42 Urine --Ancillary ordered. [facility] EDIL 20:54 20:03 11/04/2018 20:03 Discharged to Home. Impression: Cholelithiasis. Condition is mg2 Stable. Forms are Medication Reconciliation Form, Thank You Letter, Antibiotic Education, Prescription Opioid Use. Follow up: Emergency Department; When: As needed; Reason: Worsening of condition. Follow up: Private Physician; When: 2 - 3 days; Reason: Recheck today's complaints, Continuance of care, Re-evaluation by your physician. kb
== END 2018-11-04 20:54 | disposition home or self-care (01) ==
LOC: ER 17:45
DX: K80.20 Calculus of gallbladder without cholecystitis without obstruction (principal)
CPT/HCPCS: 36415; 76705; 80048; 80076; 81003; 81025; 83690; 85025; 96361; 96374; 96375; 99284; J2405; J7030